=== PATIENT | male | born 1960 | race Caucasian/White ===

== ENCOUNTER 2017-03-06 11:54 | Inpatient (IN) | payer MEDICARE ==
[~2017-03-06] VITALS: Ht 175.3 cm; Wt 84.0 kg
[2017-03-06 12:33] LABS: HEMOGLOBIN 17.1 g/dl (14.0-18.0); IMMATURE GRANULOCYTES 0.4 % (0.0-1.0); MEAN CELL VOLUME 89.3 fL CALC (80.0-100.0); MEAN CORPUSCULAR HGB 30.5 pG CALC (26.0-32.0); MEAN CORPUSCULAR HGB CONC 34.2 g/L CALC (32.0-36.0); NEUT# 6.45 thou/uL (1.82-7.42); RED BLOOD COUNT 5.6 mill/uL (4.70-6.10); RED CELL DISTRI WIDTH 12.4 % (11.5-15.5)
[2017-03-06 12:48] LABS: ALBUMIN 4.3 g/dL (3.2-5.0); ALKALINE PHOSPHATASE 50 u/l (38-126); AMYLASE 39 u/l (30-110); ANION GAP 17 (6-22 (CALC)); BILIRUBIN, TOTAL 0.7 mg/dL (0.0-1.4); BUN 9 mg/dL (9-20); BUN/CREATININE RATIO 10 (12-20 (CALC)); CALCIUM 9.5 mg/dL (8.4-10.2); CARBON DIOXIDE 27 mmol/l (22-30); CHLORIDE 102 mmol/l (95-108); CREATININE 0.8 mg/dL (0.7-1.3); GFR > 60 ML/MIN (>=60 (CALC)); GFR FOR AFR.AMER. > 60 ML/MIN (>=60 (CALC)); GLUCOSE 140 mg/dL (75-110); LIPASE 75 u/l (23-300); POTASSIUM 4.3 mmol/l (3.5-5.1); SGOT/AST 26 u/l (17-59); SGPT/ALT 40 u/l (21-72); SODIUM 141 mmol/l (137-146); TOTAL PROTEIN 7.5 g/dL (6.3-8.2)
[2017-03-06] MEDS ORDERED: ZOLOFT25 MG PO (14:12)
[2017-03-06 15:27] LABS: URINE BILIRUBIN - DIPSTICK NEGATIVE (NEGATIVE); URINE BLOOD DIPSTICK NEGATIVE (NEGATIVE); URINE CLARITY CLEAR; URINE COLOR YELLOW; URINE GLUCOSE - DIPSTICK NEGATIVE (NEGATIVE); URINE KETONE NEGATIVE (NEGATIVE); URINE LEUK ESTERASE NEGATIVE (NEGATIVE); URINE NITRITE - DIPSTICK NEGATIVE (Negative); URINE PH 5.5 (4.5-8.0); URINE PROTEIN - DIPSTICK NEGATIVE (NEG-TRACE); URINE SPECIFIC GRAVITY 1.015; URINE UROBILINOGEN - DIPSTICK 0.2 E.U./dL (0.2)
[2017-03-06 15:46] VITALS: BP 119/80
[2017-03-06 19:27] VITALS: BP 113/64
[2017-03-07 04:00] VITALS: BP 115/67
[2017-03-07 15:20] VITALS: BP 143/78
[2017-03-07 19:57] VITALS: BP 134/76
[2017-03-08] VITALS (10 sets, daily range): BP systolic 127–160; BP diastolic 69–85
[2017-03-08 05:57] LABS: HEMATOCRIT 45.8 % (39.0-50.0); HEMOGLOBIN 15.7 g/dl (14.0-18.0); MEAN CELL VOLUME 88.4 fL CALC (80.0-100.0); MEAN CORPUSCULAR HGB 30.3 pG CALC (26.0-32.0); MEAN CORPUSCULAR HGB CONC 34.3 g/L CALC (32.0-36.0); RED BLOOD COUNT 5.18 mill/uL (4.70-6.10); RED CELL DISTRI WIDTH 12.1 % (11.5-15.5)
[2017-03-08 06:05] LABS: ALBUMIN 3.5 g/dL (3.2-5.0); ALKALINE PHOSPHATASE 47 u/l (38-126); ANION GAP 14 (6-22 (CALC)); BILIRUBIN, TOTAL 0.7 mg/dL (0.0-1.4); BUN 11 mg/dL (9-20); BUN/CREATININE RATIO 11 (12-20 (CALC)); CARBON DIOXIDE 27 mmol/l (22-30); CHLORIDE 104 mmol/l (95-108); GFR > 60 ML/MIN (>=60 (CALC)); GFR FOR AFR.AMER. > 60 ML/MIN (>=60 (CALC)); GLUCOSE 87 mg/dL (75-110); POTASSIUM 4.4 mmol/l (3.5-5.1); SGOT/AST 25 u/l (17-59); SGPT/ALT 35 u/l (21-72); SODIUM 141 mmol/l (137-146); TOTAL PROTEIN 6.3 g/dL (6.3-8.2)
[2017-03-08 06:18] LABS: INTERNATIONAL NORMALIZED RATIO 1.1 RATIO (0.7-1.3); PROTHROMBIN TIME 11.6 SECONDS (9.0-12.5)
[2017-03-09 04:33] VITALS: BP 117/84
[2017-03-09 05:31] LABS: HEMATOCRIT 44.9 % (39.0-50.0); HEMOGLOBIN 15.6 g/dl (14.0-18.0); MEAN CORPUSCULAR HGB 30.6 pG CALC (26.0-32.0); MEAN CORPUSCULAR HGB CONC 34.7 g/L CALC (32.0-36.0); RED BLOOD COUNT 5.1 mill/uL (4.70-6.10); RED CELL DISTRI WIDTH 12.1 % (11.5-15.5)
[2017-03-09 08:26] VITALS: BP 118/74
[2017-03-09] MEDS ORDERED: OXYCODONE/ACETA1 TA8 PO (11:49)
[2017-03-09] MEDS ORDERED: TAMSULOSIN HCL0.4 MG PO (11:50)
== END 2017-03-09 12:45 | disposition home or self-care (01) | DRG 418 ==
LOC: ED 11:54 → ED-I 13:50 → ED 14:11 → MS2 14:12
PROVIDERS: Emergency Medicine; ADMIT Internal Medicine; ATTEND Internal Medicine
PROC: 0FT44ZZ Resection of Gallbladder, Percutaneous Endoscopic Approach (ICD-10-PCS; principal; 2017-03-08)
PROC: 0T9B70Z Drainage of Bladder with Drainage Device, Via Natural or Artificial Opening (ICD-10-PCS; 2017-03-08)
DX: K80.20 Calculus of gallbladder without cholecystitis without obstruction (principal); K50.111 Crohn's disease of large intestine with rectal bleeding; J44.9 Chronic obstructive pulmonary disease, unspecified; F17.210 Nicotine dependence, cigarettes, uncomplicated; G43.909 Migraine, unspecified, not intractable, without status migrainosus; R33.8 Other retention of urine; N99.89 Other postprocedural complications and disorders of genitourinary system; Y83.6 Removal of other organ (partial) (total) as the cause of abnormal reaction of the patient, or of later complication, without mention of misadventure at the time of the procedure; Y92.239 Unspecified place in hospital as the place of occurrence of the external cause; Z90.49 Acquired absence of other specified parts of digestive tract; Z86.19 Personal history of other infectious and parasitic diseases
CPT/HCPCS: A9537; J2710; Q9967; S0164